=== PATIENT | male | born 1990 | race Caucasian/White ===

== ENCOUNTER 2019-07-01 15:37 | Emergency (ER) | payer OTHER ==
[2019-07-01] MEDS ORDERED: MUPIROCIN 2% OINTMENT 22 GM TP ONE (17:53)
--- NOTE | 2019-07-01 17:57 | ER Document Report ---
HPI - HPI Time Seen by Provider: 07/01/19 17:48 Notes: Otherwise healthy 29-year-old male presents emergency department chief complaint of pot concern for possible insect bite. Patient reports he was working in his yard about 5 days ago and developed a very itchy rash. Past Medical History - General Information source: Patient - Social History Smoking Status: Never Smoker Frequency of alcohol use: None Drug Abuse: None Family History: Reviewed & Not Pertinent - Medical History Medical History: Negative Surgical Hx: Negative Vertical Provider Document - CONSTITUTIONAL Notes: PHYSICAL EXAMINATION: GENERAL: Well-appearing, well-nourished and in no acute distress. HEAD: Atraumatic, normocephalic. EYES: Pupils equal round extraocular movements intact, conjunctiva are normal. ENT: Nares patent NECK: Normal range of motion LUNGS: No respiratory distress Musculoskeletal: Normal range of motion NEUROLOGICAL: Normal speech, normal gait. PSYCH: Normal mood, normal affect. SKIN: Area of erythema and induration noted to medial right ankle area. No fluctuance. Course - Re-evaluation Re-evalutation: Mild cellulitis noted on exam, patient will be started on antibiotics. The rash does somewhat look like poison scott versus poison oak. Will also start patient on prednisone. Patient understands to follow-up with primary care if not improving. Return to ED if worsening. - Vital Signs Vital signs: Temp Pulse Resp BP Pulse Ox 98.0 F 66 16 143/82 H 99 07/01/19 15:51 07/01/19 15:51 07/01/19 15:51 07/01/19 15:51 07/01/19 15:51 Discharge - Discharge Clinical Impression: Rash and nonspecific skin eruption Cellulitis Qualifiers: Site of cellulitis: unspecified site Qualified Code(s): L03.90 - Cellulitis, unspecified Condition: Stable Disposition: HOME, SELF-CARE Additional Instructions: The rash is likely due to infection of your skin. You need to take the antibiotics as prescribed. Do not stop even if the rash goes away until you have completed all the antibiotics. You should also return if you develop fevers with temperature greater than 101, persistent vomiting, worsening pain, or have any other symptoms that are concerning to you. Prescriptions: Cephalexin [Cephalexin 500 MG Tablet] 1 tab PO BID #14 tablet Prednisone [Sterapred Ds] 1 pkg PO ASDIR PRN 12 Days tab.ds.pk PRN Reason:
[2019-07-01 18:03] VITALS: BP 138/87
== END 2019-07-01 18:03 | disposition home or self-care (01) ==
LOC: ER 15:37
DX: R21 Rash and other nonspecific skin eruption (principal); L03.90 Cellulitis, unspecified
CPT/HCPCS: 99281; J3490

== ENCOUNTER 2019-07-03 06:21 | Emergency (ER) | payer OTHER ==
[2019-07-03] MEDS ORDERED: ACETAMINOPHEN 325 MG TABLET PO ONE (06:39)
--- NOTE | 2019-07-03 08:08 | RADIOLOGY REPORT (SQ) ---
EXAM DESCRIPTION: U/S SCROTUM W/DOPPLER COMPLETED DATE/TIME: 07/03/2019 7:08 am REASON FOR STUDY: TESTICULAR PAIN COMPARISON: None. TECHNIQUE: Static and realtime de souza scale imaging of the scrotum and testes. Selected color Doppler and spectral images recorded to document blood flow. LIMITATIONS: None. FINDINGS: RIGHT: TESTICLE: Normal size. Normal echotexture. Normal blood flow. No mass. EPIDIDYMIS: Normal. HYDROCELE OR VARICOCELE: No. HERNIA OR EXTRA-TESTICULAR MASS: No. OTHER: No other significant finding. LEFT: TESTICLE: Normal size. Normal echotexture. Normal blood flow. No mass. EPIDIDYMIS: Normal. HYDROCELE OR VARICOCELE: No. HERNIA OR EXTRA-TESTICULAR MASS: No. OTHER: No other significant finding. IMPRESSION: NORMAL SCROTAL ULTRASOUND. NO EVIDENCE OF TESTICULAR MASS OR TORSION. TECHNICAL DOCUMENTATION: JOB ID: [id number] [employer]- All Rights Reserved Reading location - IP/workstation name: [email or web address]
--- NOTE | 2019-07-03 10:53 | ER Document Report ---
ED General - General Chief Complaint: Scrotal Pain, Acute Onset Stated Complaint: POSSIBLE ALLERGIC REACTION Time Seen by Provider: 07/03/19 10:13 Primary Care Provider: NINA LIZARRAGA [Primary Care Provider] - Follow up as needed Information source: Patient Notes: HPI: 29-year-old male who presents today with 5 days of the onset of a rash to multiple areas of the body. This coincided exactly with the onset 5 days ago of antibiotics secondary to peptic ulcer disease. He was placed on Flagyl, sucralfate, pantoprazole, and amoxicillin by the GI physician after an endoscopy showed some ulcers with possible H. pylori bacteria. 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 He denies any fevers, vomiting, or diarrhea. Patient states that the rash is also spread to his scrotal region. He denies any dysuria or discharge. He states that the rash is mostly to the right foot, left calf, chest, and groin. He denies a history to penicillin since he states he has had penicillins multiple times in the past. ROS: See HPI All other review of systems reviewed and otherwise negative Reviewed vital signs and nursing note as charted by RN. PHYSICAL EXAM: CONSTITUTIONAL: Alert and oriented and responds appropriately to questions. Well-appearing; well-nourished HEAD: Normocephalic; atraumatic EYES: PERRL; Conjunctivae clear, sclerae non-icteric ENT: Normal lips and mucosa; moist mucous membranes; pharynx without lesions noted NECK: Supple without meningismus; non-tender; no cervical lymphadenopathy, no masses CARD: Regular rate and rhythm; no murmurs; symmetric distal pulses RESP: Normal chest excursion without splinting or tachypnea; breath sounds clear and equal bilaterally ABD/GI: Normal bowel sounds; non-distended; soft, non-tender BACK: The back appears normal and is non-tender to palpation EXT: Normal ROM in all joints; non-tender to palpation; no edema SKIN: Patient has a blanching oozing excoriated lesion to the right foot and medial ankle, left posterior calf, scrotal region sparing the perineal region, with a blanching maculopapular rash to the chest NEURO: CN 2-12 intact; 5/5 bilateral upper and lower extremity strength with sensation intact to light touch PSYCH: The patient's mood and manner are appropriate. Grooming and personal hygiene are appropriate. TRAVEL OUTSIDE OF THE [place] IN LAST 30 DAYS: No - Related Data Allergies/Adverse Reactions: No Known Allergies Allergy (Verified 07/03/19 06:25) Past Medical History - Social History Smoking Status: Never Smoker Frequency of alcohol use: None Drug Abuse: None Family History: Reviewed & Not Pertinent Patient has suicidal ideation: No Patient has homicidal ideation: No Past Surgical History: Reports: Hx Oral Surgery - esophagus, Hx Orthopedic Surgery - Knee Physical Exam - Vital signs Vitals: Temp Pulse Resp BP Pulse Ox 97.9 F 75 20 124/86 H 96 07/03/19 06:25 07/03/19 06:25 07/03/19 06:25 07/03/19 06:25 07/03/19 06:25 Course - Re-evaluation Re-evalutation: 07/03/19 10:51 Given the history and physical examination with a rash to multiple lesions with no constitutional symptoms, with an Accu-Chek as recorded here, at the same time of starting multiple new medications, we will discontinue the medications and start the patient on a short course of Keflex for possible bacterial superinfection. Strict return precautions have been explained. Patient will follow-up with his GI physician or primary care physician for reassessment of the medications and H. pylori treatment. - Vital Signs Vital signs: Temp Pulse Resp BP Pulse Ox 97.9 F 75 20 124/86 H 96 07/03/19 06:25 07/03/19 06:25 07/03/19 06:25 07/03/19 06:25 07/03/19 06:25 Discharge - Discharge Clinical Impression: Skin lesions Allergic reaction Qualifiers: Encounter type: initial encounter Qualified Code(s): T78.40XA - Allergy, unspecified, initial encounter Condition: Good Disposition: HOME, SELF-CARE Additional Instructions: Come back immediately with any fevers, vomiting, increased lesions, pain, or any other acute problems. Please make sure that you follow-up with the primary care physician and registered respiratory technician as we have discussed. Prescriptions: Cephalexin Monohydrate [Keflex 500 mg Capsule] 500 mg PO Q8H 7 Days #21 capsule Referrals: [facility] [Primary Care Provider] - Follow up as needed
[2019-07-03] MEDS ORDERED: CEPHALEXIN 500 MG CAPSULE PO ONE (11:21)
[2019-07-03 11:30] VITALS: BP 122/82
== END 2019-07-03 11:30 | disposition home or self-care (01) ==
LOC: ER 06:21
DX: T78.40XA Allergy, unspecified, initial encounter (principal); L98.9 Disorder of the skin and subcutaneous tissue, unspecified; N50.82 Scrotal pain; R21 Rash and other nonspecific skin eruption; Z79.899 Other long term (current) drug therapy; Z86.19 Personal history of other infectious and parasitic diseases
CPT/HCPCS: 76870; 82962; 93976; 99283